=== PATIENT | male | born 1960 | race Caucasian/White ===

== ENCOUNTER 2018-11-15 11:11 | Emergency (ER) | payer OTHER ==
[~2018-11-15] VITALS: Ht 167.6 cm; Wt 79.0 kg
[2018-11-15] MEDS ORDERED: HYDR12.517 PO (11:45)
--- NOTE | 2018-11-15 11:46 | NUR ---
[facility] DRAW[facility]LOOD AND THEN EKG COMPLETED BY TECH. TO BE MEDICATED PER ORDERS FOR PAIN
[2018-11-15] MEDS ORDERED: ONDANSETRON ODT 4 MG ONE (11:48)
[2018-11-15] MEDS ORDERED: HYDROcodone/APAP 5/325 TABLET ONE (11:48)
[2018-11-15 11:53] LABS: BASOPHILS # (AUTO) 0.07 x10^3/uL (0-0.1); BASOPHILS % (AUTO) 1 % (0-1); EOSINOPHILS # (AUTO) 0.26 x10^3/uL (0-0.4); EOSINOPHILS % (AUTO) 4 % (1-7); LYMPHOCYTES # (AUTO) 1.65 x10^3/uL (1-3.4); LYMPHOCYTES % (AUTO) 25 % (22-44); MD NO; MEAN CORPUSCULAR HEMOGLOBIN 30.8 pg (27.5-34.5); MEAN CORPUSCULAR HGB CONC 34.5 g/dL (33.2-36.2); MEAN CORPUSCULAR VOLUME 89.4 fL (81-97); MEAN PLATELET VOLUME 8.2 fL (7.4-10.4); MONOCYTES # (AUTO) 0.56 x10^3/uL (0.2-0.8); MONOCYTES % (AUTO) 8 % (2-9); NEUTROPHILS # (AUTO) 4.15 x10^3/uL (1.8-6.8); NEUTROPHILS % (AUTO) 62 % (42-75); PLATELET COUNT 211 x10^3/uL (130-400); RED BLOOD COUNT 5.18 x10^6/uL (4.38-5.82); RED CELL DISTRIBUTION WIDTH 13.4 % (9.4-14.8)
[2018-11-15] MEDS ORDERED: HYDROcodone/APAP 5/325 TABLET PO ONE (12:00)
[2018-11-15] MEDS ORDERED: ONDANSETRON ODT 4 MG PO ONE (12:00)
[2018-11-15 12:06] LABS: ALANINE AMINOTRANSFERASE 32 U/L (12-78); ALBUMIN 3.7 g/dL (3.4-5.0); ANION GAP 5 mmol/L (5-15); CALCIUM 8.7 mg/dL (8.5-10.1); CHLORIDE 107 mmol/L (98-107)
[2018-11-15 12:08] LABS: ALKALINE PHOSPHATASE 104 U/L (45-117); BILIRUBIN,TOTAL 1.1 mg/dL (0.2-1.0); TOTAL PROTEIN 8.3 g/dL (6.4-8.2)
[2018-11-15] MEDS ORDERED: MAALOX/HYOSCYAMINE/LIDOCAINE 45 ML BTL PO ONE (13:00)
[2018-11-15 13:21] VITALS: BP 135/88
--- NOTE | 2018-11-15 13:22 | NUR ---
NO PAIN OR NAUSEA SINCE MEDICATED FOR SAME
[2018-11-15] MEDS ORDERED: MAALOX/HYOSCYAMINE/LIDOCAINE 45 ML BTL ONE (13:38)
== END 2018-11-15 13:54 | disposition home or self-care (01) ==
LOC: ED 13:35
DX: N28.1 Cyst of kidney, acquired (principal); R10.11 Right upper quadrant pain; R10.13 Epigastric pain
CPT/HCPCS: 36415; 71045; 76700; 80053; 83690; 85025; 93005; 99284; Q0162